=== PATIENT | female | born 1970 | race African-American/Black ===

== ENCOUNTER 2017-08-04 17:01 | Inpatient (IN) | payer OTHER ==
[~2017-08-04] VITALS: Ht 162.6 cm; Wt 99.8 kg
[2017-08-04 17:22] VITALS: Ht 162.6 cm; Wt 99.8 kg
[2017-08-04 18:35] LABS: BASOPHIL % 1.6 % (0-2); PLATELET COUNT 365 x10^3mcL (130-400)
[2017-08-04 18:44] LABS: CALCIUM 9.4 mg/dL (8.5-10.1); CARBON DIOXIDE 27.7 mmol/L (21-32); CHLORIDE SERUM 102 mmol/L (98-107); CREATININE SERUM 0.8 mg/dL (0.6-1.0); GFR1 > 60 mL/min; GLUCOSE SERUM 180 mg/dL (74-106); POTASSIUM SERUM 3.4 mmol/L (3.5-5.1); SODIUM SERUM 140 mmol/L (136-145)
[2017-08-04 18:45] LABS: AMPHETAMINE QUAL UR NONE DETECTED (NEG <=1000)
[2017-08-04 18:49] LABS: ALBUMIN 3.6 g/dL (3.4-5.0); ALKALINE PHOSPHATASE 75 U/L (46-116); ALT/SGPT 27 U/L (14-59); AST/SGOT 28 U/L (15-37); BILIRUBIN TOTAL 0.32 mg/dL (0.20-1.00)
[2017-08-04 18:53] LABS: CHOLESTEROL 128 mg/dL (<200); TOTAL PROTEIN, SERUM 8.6 g/dL (6.4-8.2)
[2017-08-04] MEDS ORDERED: METFORMIN HYDR500 M1 PO (20:19)
[2017-08-04] MEDS ORDERED: NOR5 PO (20:20)
[2017-08-04] MEDS ORDERED: GLUCOTROL10 MG PO (20:20)
[2017-08-04 21:13] VITALS: BP 153/82
[2017-08-04 21:30] LABS: MAGNESIUM 1.9 mg/dL (1.8-2.4); PHOSPHOROUS 2.9 mg/dL (2.5-4.9)
[2017-08-04 21:31] LABS: CHOLESTEROL/HDL RATIO 1.8
[2017-08-04 21:34] LABS: T3 TOTAL 0.95 ng/mL
[2017-08-04 21:37] LABS: FREE T4 1.32 ng/dL (0.76-1.46); T4(THYROXINE) 8.3 ug/dL (4.7-13.3)
[2017-08-04] MEDS ORDERED: LEXAPRO10 MG PO (22:43)
[2017-08-05 05:45] VITALS: BP 149/95
[2017-08-05 07:01] LABS: CALCIUM 8.5 mg/dL (8.5-10.1); CARBON DIOXIDE 26.1 mmol/L (21-32); CHLORIDE SERUM 105 mmol/L (98-107); CREATININE SERUM 0.8 mg/dL (0.6-1.0); GFR1 > 60 mL/min; GLUCOSE SERUM 208 mg/dL (74-106); POTASSIUM SERUM 3.4 mmol/L (3.5-5.1); SODIUM SERUM 139 mmol/L (136-145)
[2017-08-05 08:30] LABS: BASOPHIL % 1.5 % (0-2); PLATELET COUNT 391 x10^3mcL (130-400); RED CELL DISTRIBUTION WIDTH 13.9 % (11.5-14.5)
[2017-08-05 10:00] VITALS: BP 134/90
[2017-08-05 13:14] VITALS: BP 146/92
[2017-08-05 21:20] VITALS: BP 151/92
[2017-08-06 05:36] VITALS: BP 146/94
[2017-08-06 06:37] LABS: BASOPHIL % 0.6 % (0-2); PLATELET COUNT 365 x10^3mcL (130-400); RED CELL DISTRIBUTION WIDTH 14.1 % (11.5-14.5)
[2017-08-06 06:53] LABS: CALCIUM 8.3 mg/dL (8.5-10.1); CARBON DIOXIDE 26.5 mmol/L (21-32); CHLORIDE SERUM 107 mmol/L (98-107); CREATININE SERUM 0.8 mg/dL (0.6-1.0); GFR1 > 60 mL/min; GLUCOSE SERUM 178 mg/dL (74-106); POTASSIUM SERUM 3.3 mmol/L (3.5-5.1); SODIUM SERUM 142 mmol/L (136-145)
[2017-08-06 08:35] VITALS: BP 141/92
[2017-08-06 15:08] LABS: AMPHETAMINE QUAL UR NONE DETECTED (NEG <=1000)
[2017-08-06 17:34] VITALS: BP 137/89
== END 2017-08-06 19:22 | DRG 100 ==
LOC: ED 17:01 → MU 19:47 → DU 19:47 → MU 08-05 17:49
PROVIDERS: Family Medicine; Specialist
DX: R56.9 Unspecified convulsions (principal); G92 Toxic encephalopathy; R45.851 Suicidal ideations; F32.9 Major depressive disorder, single episode, unspecified; E11.65 Type 2 diabetes mellitus with hyperglycemia; E87.6 Hypokalemia; I10 Essential (primary) hypertension; F14.10 Cocaine abuse, uncomplicated; E66.9 Obesity, unspecified; Z68.27 Body mass index [BMI] 27.0-27.9, adult; Z79.84 Long term (current) use of oral hypoglycemic drugs
CPT/HCPCS: 82962; 83880; 84439; G0480; J2060; J2405; J7030; Q0092